=== PATIENT | female | born 1995 | race Caucasian/White ===

== ENCOUNTER 2017-04-07 17:55 | Emergency (ER) | payer SELFPAY ==
[2017-04-07 18:08] VITALS: BP 106/58
--- NOTE | 2017-04-07 18:21 | UC ---
Complaint Female HPI - HPI Summary HPI Summary: 21 y/o female presents to the urgent care c/o of urinary frequency and burning on urination with mild vaginal itching for the past week. Pt is very concerned and STD's since she had unprotected sexual intercourse lately. LMP: about 2 months ago. She stopped taking OCP about 1 year ago. Pt declines Pelvic exam since she has an appt at [facility] Next week for PAP. However she requests STD's screening on urine. Pt denies pelvic pain, lower back pain, fever , abdominal pain. N/V/D, vaginal discharge. She has Hx of chlamydia in the past - History Of Current Complaint Chief Complaint: UCGU Stated Complaint: PERSONAL Time Seen by Provider: 04/07/17 18:19 Hx Obtained From: Patient Hx Last Menstrual Period: January 2017 ?: No - not sure Onset/Duration: Gradual Onset, Lasting Weeks - 1 week, Still Present Timing: Intermittent Severity Initially: Mild Severity Currently: Moderate Pain Intensity: 4 Pain Scale Used: 0-10 Numeric Character: Burning Aggravating Factor(s): Urination Associated Signs And Symptoms: Positive: Negative. Negative: Fever, Back Pain, Vaginal Bleeding/Discharge, Vaginal Discharge, Genital Swelling - Risk Factors Ectopic Risk Factor: Negative Ovarian Torsion Risk Factor: Negative - Allergies/Home Medications Allergies/Adverse Reactions: Allergies Allergy/AdvReac Type Severity Reaction Status Date / Time No Known Allergies Allergy Verified 04/07/17 18:07 PMH/Surg Hx/FS Hx/Imm Hx Previously Healthy: Yes Psychological History: Anxiety - Surgical History Surgical History: None - Family History Known Family History: Positive: None - Pt denies FMHX - Social History Occupation: Employed Full-time Lives: With Family Alcohol Use: None Substance Use Type: None Smoking Status (MU): Heavy Every Day Tobacco Smoker Type: Cigarettes Amount Used/How Often: 1/2 ppd - Immunization History Vaccination Up to Date: Yes Review of Systems Constitutional: Negative Skin: Negative Eyes: Negative ENT: Negative Respiratory: Negative Cardiovascular: Negative Gastrointestinal: Negative Genitourinary: Dysuria, Frequency Motor: Negative Neurovascular: Negative Musculoskeletal: Negative Neurological: Negative Psychological: Negative Is Patient Immunocompromised?: No All Other Systems Reviewed And Are Negative: Yes Physical Exam Triage Information Reviewed: Yes Vital Signs: Initial Vital Signs Temp 97.5 F 04/07/17 18:03 Pulse 82 04/07/17 18:03 Resp 14 04/07/17 18:03 BP 106/58 04/07/17 18:03 Pulse Ox 99 04/07/17 18:03 - Additional Comments VITAL SIGNS: Reviewed. GENERAL: Patient is a well developed and nourished female who is sitting comfortable in the examining table. Patient is not in any acute respiratory distress. HEAD AND FACE: No signs of trauma. No ecchymosis, hematomas or skull depressions. No sinus tenderness. EYES: PERRLA, EOMI x 2, No injected conjunctiva, clear watery eyes, no nystagmus. No photophobia. EARS: Hearing grossly intact. Ear canals and tympanic membranes are within normal limits. MOUTH: pharynx with no erythema, no exudates,no palatal petechiae. no B/L tonsillar enlargement Uvula in midline. NECK: Supple, trachea is midline, no lymphadenopathy, no JVD, no carotid bruit, no c-spine tenderness, neck with full ROM. CHEST: Symmetric, no tenderness at palpation LUNGS: Clear to auscultation bilaterally. No wheezing or crackles. CVS: Regular rate and rhythm, S1 and S2 present, no murmurs or gallops appreciated. ABDOMEN: Soft, non-tender. No signs of distention. No rebound no guarding, and no masses palpated. Bowel sounds are normal. BACK:no scoliosis or lesions, non tender to palaption, No B/L CVA tenderness EXTREMITIES: FROM in all major joints, no edema, no cyanosis or clubbing. NEURO: Alert and oriented x 3. No acute neurological deficits. Speech is normal and follows commands. SKIN: Dry and warm Complaint Female Dx - Course Course Of Treatment: 21 y/o female presents to the urgent care c/o of urinary frequency and burning on urination with mild vaginal itching for the past week. Pt is very concerned and STD's since she had unprotected sexual intercourse lately. LMP: about 2 months ago. She stopped taking OCP about 1 year ago. Pt declines Pelvic exam since she has an appt at [facility] Next week for PAP. However she request STD's screening on urine. Pt denies pelvic pain, lower back pain, fever, abdominal pain. N/V/D. She has Hx of chlamydia in the past. Hx obtained. PE:WNL, UA: negative, test:negative. GC/ Chlamydia and trichomonas ordered on urine. Pt with Dysuria. Pt Rx Pyridium 100mg PO TID x 2 days to alleviate symptoms. Advised to increase fluid intake. Urine sent for GC/chlamydia, trichomonas r/o any abnormalit. Pt will be notified for further treatment. Pt strongly advised to keep her appt with [facility] for PAP and other STD's. Pt advised If symptoms do not improve to return to the urgent care or f/u with PCP. Pt understood and agreed. Left the clinic ambulating. - Differential Dx/Diagnosis Differential Diagnosis/HQI/PQRI: Pelvic Inflammatory Disease, , Sexually Transmitted Disease, Urinary Tract Infection Provider Diagnoses: 1- Dysuria. 2-Screening for STD's. 3-r/o Discharge - Discharge Plan Condition: Stable Disposition: HOME Prescriptions: Phenazopyridine TAB* [Pyridium 100 mg TAB*] 100 mg PO TID #6 tab Patient Education Materials: Sexually Transmitted Diseases (ED), Dysuria (ED) Referrals: Chris Valdivia MD [Medical Doctor] - If Needed Additional Instructions: 1- Please take Pyridium 100 mg PO TID x 2 days to alleviate urinary symptoms. Increase increase fluid intake. drink cranberry juice. 2-Urine was sent to lab to r/o STD's. You will be notified of any abnormality 3-If symptoms do not improve please return to the urgent care or f/u with her PCP.
== END 2017-04-07 18:49 | disposition home or self-care (01) ==
LOC: UCCORT 17:55
DX: R30.0 Dysuria (principal); Z11.3 Encounter for screening for infections with a predominantly sexual mode of transmission; Z32.02 Encounter for pregnancy test, result negative; F41.9 Anxiety disorder, unspecified; F17.210 Nicotine dependence, cigarettes, uncomplicated
CPT/HCPCS: 81003; 84702; 87491; 87591; 99202; G0463

== ENCOUNTER 2018-12-01 10:56 | Emergency (ER) | payer MEDICAID, OTHER ==
[2018-12-01 11:22] VITALS: BP 115/70
--- NOTE | 2018-12-01 12:06 | UC ---
[facility] Dental HPI - HPI Summary HPI Summary: Pt presents with c/o worsening right lower dental pain over the "last few days" . - History of Current Complaint Chief Complaint: UCDentalProblem Stated Complaint: DENTAL COMPLAINT Time Seen by Provider: 12/01/18 11:45 Hx Obtained From: Patient Hx Last Menstrual Period: "Probably the end of last month" ?: No Onset/Duration: Gradual Onset, Lasting Days, Still Present, Worse Since - onaet Severity: Severe Pain Intensity: 10 Aggravating Factor(s): Heat, Cold, Chewing Alleviating Factor(s): Nothing Related History: Swelling - Allergies/Home Medications Allergies/Adverse Reactions: Allergies Allergy/AdvReac Type Severity Reaction Status Date / Time buprenorphine [From Suboxone] Allergy "I sweat, Verified 12/01/18 11:22 turn purple, have a hard time breathing." naloxone [From Suboxone] Allergy "I sweat, Verified 12/01/18 11:22 turn purple, have a hard time breathing." Home Medications: Home Medications Methadone XENIA (NF) [Methadone (NF)] 100 mg PO QAM 12/01/18 [History Confirmed ] PMH/Surg Hx/FS Hx/Imm Hx Previously Healthy: Yes - Surgical History Surgical History: None - Family History Known Family History: Positive: None - Pt denies FMHX - Social History Occupation: Employed Full-time Lives: With Family Alcohol Use: None Substance Use Type: Prescribed Smoking Status (MU): Heavy Every Day Tobacco Smoker Type: Cigarettes Amount Used/How Often: 1/2 PPD Length of Time of Smoking/Using Tobacco: Since Age 15 Have You Smoked in the Last Year: Yes - Immunization History Vaccination Up to Date: Yes Review of Systems All Other Systems Reviewed And Are Negative: Yes Constitutional: Positive: Negative Skin: Positive: Negative Eyes: Positive: Negative ENT: Positive: Dental Pain Respiratory: Positive: Negative Cardiovascular: Positive: Negative Gastrointestinal: Positive: Negative Genitourinary: Positive: Negative Motor: Positive: Negative Neurovascular: Positive: Negative Musculoskeletal: Positive: Negative Neurological: Positive: Negative Psychological: Positive: Negative Is Patient Immunocompromised?: No Physical Exam Triage Information Reviewed: Yes Appearance: Pain Distress Vital Signs: Initial Vital Signs Temp 98.5 F 12/01/18 11:14 Pulse 86 12/01/18 11:14 Resp 18 07/20/19 11:14 BP 115/70 12/01/18 11:14 Pulse Ox 100 12/01/18 11:14 Vital Signs Reviewed: Yes Eye Exam: Normal ENT Exam: Normal Dental: Positive: Percussion Tenderness @, Gross Decay/Caries @ Neck exam: Normal Respiratory: Positive: No respiratory distress Musculoskeletal Exam: Normal Neurological Exam: Normal Psychological Exam: Normal Skin Exam: Normal Dental Complaint Course/Dx - Differential Dx/Diagnosis Differential Diagnosis/Dx: Dental Abscess, Dental Caries, Peridontic Disease Provider Diagnosis: Dental abscess, Poor dentition Discharge - Sign-Out/Discharge Documenting (check all that apply): Patient Departure All imaging exams completed and their final reports reviewed: No Studies - Discharge Plan Condition: Stable Disposition: HOME Prescriptions: Lidocaine 2% VISCOUS* [Xylocaine 2% Viscous*] 15 ml SWISH SPIT Q4H PRN #1 btl PRN Reason: Pain Penicillin VK 500 MG TAB(NF) [Penicillin VK 500 mg Tab] 500 mg PO Q6H #40 tab Patient Education Materials: Dental Abscess (ED) Referrals: [facility] [[facility]] - If Needed No Primary Care Phys,NOPCP [Primary Care Provider] - Additional Instructions: Please follow up with your dental care provider as soon as possible. - Billing Disposition and Condition Condition: STABLE Disposition: Home
== END 2018-12-01 12:16 | disposition home or self-care (01) ==
LOC: UCCORT 10:56
DX: K08.89 Other specified disorders of teeth and supporting structures (principal); K04.7 Periapical abscess without sinus; F17.210 Nicotine dependence, cigarettes, uncomplicated
CPT/HCPCS: 99212; G0463

== ENCOUNTER 2020-10-05 21:02 | Observation (INO) ==
[2020-10-05] MEDS ORDERED: Ondansetron 4 mg VIAL 2 MG/ML 2 ml VIAL IV ONE (22:44)
[2020-10-05] MEDS ORDERED: Lactated Ringers 1000 ml BAG 1,000 ML IV ONE (22:44)
[2020-10-05] MEDS ORDERED: Famotidine IV 10 MG/ML 2 ml VIAL (20 mg) IV SLOW PU ONE (22:44)
[2020-10-05] MEDS ORDERED: Diazepam INJ CARPUJECT 5 MG/ML IV ONE (22:44)
[2020-10-05 23:56] LABS: ABS Basophils 0.1 10^3/ul (0-0.2); ABS Lymphocytes 1.5 10^3/ul (1.0-4.8); ABS Monocytes 0.4 10^3/ul (0-0.8); ABS Neutrophils 8.5 10^3/ul (1.5-7.7); Eosinophil % 0.1 %; Hematocrit 43 % (35-47); Lymphocyte % 14.7 %; Mean Corpuscular HGB Conc 35 g/dL (31-36); Mean Corpuscular Hemoglobin 30 pg (27-31); Mean Corpuscular Volume 85 fL (80-97); Mean Platelet Volume 8.1 fL (7.4-10.4); Platelet Count 444 10^3/uL (150-450); Red Blood Count 4.99 10^6 /uL (3.70-4.87); Red Cell Distribution Width 13 % (10-15); White Blood Count 10.5 10^3/uL (3.5-10.8)
[2020-10-06 00:16] LABS: ALT 10 U/L (7-52); AST 16 U/L (13-39); Albumin 5.3 g/dL (3.2-5.2); Albumin/Globulin Ratio 1.6 (1-3); Alkaline Phosphatase 59 U/L (35-149); Anion Gap 14 mmol/L (2-11); Blood Urea Nitrogen 12 mg/dL (6-24); CO2 Carbon Dioxide 22 mmol/L (22-32); Calcium 10.6 mg/dL (8.6-10.3); Chloride 101 mmol/L (101-111); Creatine Kinase 61 U/L (10-223); EGFR Non-African American 109.1 (>60); Globulin 3.3 g/dL (2-4); Glucose 111 mg/dL (70-100); Indirect Bilirubin 0.4 mg/dL (0.3-1.0); Lipase 13 U/L (11.0-82.0); Magnesium 2.2 mg/dL (1.9-2.7); Potassium 3.4 mmol/L (3.5-5.0); Sodium 137 mmol/L (135-145); Total Protein 8.6 g/dL (6.4-8.9)
[2020-10-06] MEDS ORDERED: Diazepam INJ CARPUJECT 5 MG/ML IV ONE (00:23)
[2020-10-06] MEDS ORDERED: Metoclopramide 5 MG/ML VIAL (10 mg) IV SLOW PU ONE (00:24)
[2020-10-06] MEDS ORDERED: Lactated Ringers 1000 ml BAG 1,000 ML IV ONE ×2 (00:24→03:51)
[2020-10-06] MEDS ORDERED: Haloperidol 5 mg/ml SDV IV/IM 5 MG/ML AMP IV SLOW PU ONE (03:51)
[2020-10-06] MEDS ORDERED: LORazepam 2 mg VIAL 1 ml IV PUSH PRN (04:46)
[2020-10-06] MEDS ORDERED: Ondansetron 4 mg VIAL 2 MG/ML 2 ml VIAL IV PRN ×2 (04:46→11:01)
[2020-10-06] MEDS ORDERED: Lorazepam PYXIS KEY PRN (04:46)
[2020-10-06] MEDS ORDERED: Lactated Ringers 1000 ml BAG 1,000 ML IV SCH (05:00)
[2020-10-06 05:36] LABS: EGFR African American 147.1 (>60); EGFR Non-African American 121.5 (>60)
[2020-10-06 06:00] LABS: Potassium 4.1 mmol/L (3.5-5.0)
[2020-10-06 06:03] LABS: HCG Pregnancy < 0.60 mIU/mL
[2020-10-06] MEDS: KCL 10 MEQ/50 ML IVPREMIX 10 MEQ/50 ML BAG IV SCH ×2 (07:30→08:33)
[2020-10-06] MEDS ORDERED: NS 0.9% 1000 ml BAG 1,000 ML IV SCH (07:45)
[2020-10-06 11:26] VITALS: BP 138/71
[2020-10-06 12:00] LABS: ABS Basophils 0.1 10^3/ul (0-0.2); ABS Monocytes 0.7 10^3/ul (0-0.8); ABS Neutrophils 6.7 10^3/ul (1.5-7.7); Eosinophil % 0.2 %; Hematocrit 34 % (35-47); Hemoglobin 12.1 g/dL (12.0-16.0); Lymphocyte % 28.8 %; Mean Corpuscular HGB Conc 36 g/dL (31-36); Mean Corpuscular Hemoglobin 30 pg (27-31); Mean Corpuscular Volume 85 fL (80-97); Mean Platelet Volume 7.7 fL (7.4-10.4); Nucleated Red Blood Cells % 0.1; Platelet Count 351 10^3/uL (150-450); Red Blood Count 3.99 10^6 /uL (3.70-4.87); Red Cell Distribution Width 13 % (10-15); White Blood Count 10.5 10^3/uL (3.5-10.8)
== END 2020-10-06 14:30 | disposition left against medical advice (07) ==
LOC: MED 21:02 → ED 21:02
PROVIDERS: ADMIT Hospitalist; ATTEND Hospitalist